=== PATIENT | male | born 1955 | race Caucasian/White ===

== ENCOUNTER 2021-10-24 06:29 | Inpatient (IN) | payer BC, SELFPAY ==
[2021-10-24] VITALS (38 sets, daily range): BP systolic 92–149; BP diastolic 75–126; PULSE 71–177; RESP 16–36; TEMP 36.5–37.2; O2SAT 94–100; BMI 22.1; BMI 23.1
--- NOTE | 2021-10-24 06:36 | EKG12_ITS ---
Test Reason : REPEAT Blood Pressure : / mmHG Vent. Rate : 127 BPM Atrial Rate : 127 BPM P-R Int : 100 ms QRS Dur : 144 ms QT Int : 370 ms P-R-T Axes : 062 086 -77 degrees QTc Int : 537 ms Sinus tachycardia with short NV Left bundle branch block Abnormal ECG Confirmed by KEYANNA HOGAN, JAM ([id number]), legal editor JACKIE HENRY ([id number]) on 10/27/2021 9:43:54 AM Referred By: KENTRELL Confirmed By:JAM BRICEÑO MD
--- NOTE | 2021-10-24 06:51 | EX.ED.DYSGE1 ---
HPI History of Present Illness Chief Complaint: Shortness of Breath Narrative Narrative: Patient is a 66-year-old male with past medical history of smoking and reported hiatal hernia. He states he went to bed normally last night and then awoke around 2 AM with sensation of palpitations/heart racing and shortness of breath. He states he has been told in the past that his shortness of breath is related to his smoking and hiatal hernia so he tried to sleep it off. Despite this he kept having palpitations and persistent symptoms so he presents for evaluation. Patient denies any past medical history of cardiac dysrhythmia and denies any excessive stimulant use or illicit drug use [facility] PFS Medical History no medical history Home Medications NK 10/24/21 [History Last Taken Unknown] Allergy/AdvReac Type Severity Reaction Status Date / Time No Known Allergies Allergy Verified 10/24/21 06:56 Social History Smoking Status: Current every day smoker tobacco type: cigarettes ROS ROS ED Constitutional Constitutional ED: Denies chills or fever(s) ENT ENT ED: Denies sore throat Cardiovascular Cardiovascular: Reports palpitations and racing heartbeat; Denies chest pain Respiratory/Chest Respiratory/Chest: Reports dyspnea; Denies cough Gastrointestinal Gastrointestinal: Reports nausea; Denies abdominal pain, diarrhea or vomiting Genitourinary Genitourinary ED: Denies dysuria Musculoskeletal Musculoskeletal: Denies myalgias Integumentary Denies rash Neurologic Neurologic: Denies headache(s) Hematologic/Lymphatic Hematologic/Lymphatic: Denies easy bleeding or easy bruising EXAM Physical Exam Const Vital Signs: 10/24/21 06:29 10/24/21 06:54 10/24/21 07:29 Temperature 97.7 F L Temperature Source Temporal Pulse Rate 177 H 156 H Pulse Rate [1 (Initial Baseline)] Pulse Rate [4] Pulse Rate [6] Pulse Rate [7] Respiratory Rate 24 H 29 H Respiratory Rate [1 (Initial Baseline)] Respiratory Rate [3] Respiratory Rate [4] Respiratory Rate [6] Respiratory Rate [7] Respiratory Effort Labored Accessory Muscle Use Respiratory Depth Deep Respiratory Pattern Tachypnea Blood Pressure 149/126 H 136/117 H Blood Pressure [4] Blood Pressure [7] Blood Pressure Mean 133 123 Pulse Ox 95 100 Oxygen Delivery Method Room Air Room Air Nasal Cannula Oxygen Delivery Method [1 (Initial Baseline)] Oxygen Delivery Method [2] Oxygen Delivery Method [3] Oxygen Delivery Method [4] Oxygen Delivery Method [5] Oxygen Delivery Method [6] Oxygen Delivery Method [7] Oxygen Flow Rate (L/min) 2 Oxygen Flow Rate (L/min) [1 (Initial Baseline)] Oxygen Flow Rate (L/min) [2] Oxygen Flow Rate (L/min) [3] Oxygen Flow Rate (L/min) [4] Oxygen Flow Rate (L/min) [5] Oxygen Flow Rate (L/min) [6] Oxygen Flow Rate (L/min) [7] 10/24/21 08:04 10/24/21 08:10 10/24/21 08:15 Temperature 98.1 F Temperature Source Pulse Rate 164 H Pulse Rate [1 (Initial Baseline)] Pulse Rate [4] Pulse Rate [6] Pulse Rate [7] Respiratory Rate 24 H Respiratory Rate [1 (Initial Baseline)] Respiratory Rate [3] Respiratory Rate [4] Respiratory Rate [6] Respiratory Rate [7] Respiratory Effort Respiratory Depth Respiratory Pattern Blood Pressure 141/114 H Blood Pressure [4] Blood Pressure [7] Blood Pressure Mean Pulse Ox 99 Oxygen Delivery Method Nasal Cannula Nasal Cannula Nasal Cannula Oxygen Delivery Method [1 (Initial Baseline)] Oxygen Delivery Method [2] Oxygen Delivery Method [3] Oxygen Delivery Method [4] Oxygen Delivery Method [5] Oxygen Delivery Method [6] Oxygen Delivery Method [7] Oxygen Flow Rate (L/min) 2 3 3 Oxygen Flow Rate (L/min) [1 (Initial Baseline)] Oxygen Flow Rate (L/min) [2] Oxygen Flow Rate (L/min) [3] Oxygen Flow Rate (L/min) [4] Oxygen Flow Rate (L/min) [5] Oxygen Flow Rate (L/min) [6] Oxygen Flow Rate (L/min) [7] 10/24/21 08:20 10/24/21 08:25 10/24/21 08:27 Temperature 98.9 F Temperature Source Pulse Rate 157 H Pulse Rate [1 (Initial Baseline)] Pulse Rate [4] Pulse Rate [6] 155 H Pulse Rate [7] 158 H Respiratory Rate 22 H Respiratory Rate [1 (Initial Baseline)] Respiratory Rate [3] Respiratory Rate [4] Respiratory Rate [6] 21 H Respiratory Rate [7] 36 H Respiratory Effort Respiratory Depth Respiratory Pattern Blood Pressure 122/96 H Blood Pressure [4] Blood Pressure [7] 113/100 H Blood Pressure Mean Pulse Ox 95 Oxygen Delivery Method Nasal Cannula Nasal Cannula Oxygen Delivery Method [1 (Initial Baseline)] Oxygen Delivery Method [2] Oxygen Delivery Method [3] Oxygen Delivery Method [4] Oxygen Delivery Method [5] Nasal Cannula Oxygen Delivery Method [6] Nasal Cannula Oxygen Delivery Method [7] Nasal Cannula Oxygen Flow Rate (L/min) 3 Oxygen Flow Rate (L/min) [1 (Initial Baseline)] Oxygen Flow Rate (L/min) [2] Oxygen Flow Rate (L/min) [3] Oxygen Flow Rate (L/min) [4] Oxygen Flow Rate (L/min) [5] 3 Oxygen Flow Rate (L/min) [6] 3 Oxygen Flow Rate (L/min) [7] 3 10/24/21 08:37 Temperature Temperature Source Pulse Rate Pulse Rate [1 (Initial Baseline)] 168 H Pulse Rate [4] 114 H Pulse Rate [6] Pulse Rate [7] Respiratory Rate Respiratory Rate [1 (Initial Baseline)] 30 H Respiratory Rate [3] 32 H Respiratory Rate [4] 30 H Respiratory Rate [6] Respiratory Rate [7] Respiratory Effort Respiratory Depth Respiratory Pattern Blood Pressure Blood Pressure [4] 121/103 H Blood Pressure [7] Blood Pressure Mean Pulse Ox 95 Oxygen Delivery Method Nasal Cannula Oxygen Delivery Method [1 (Initial Baseline)] Nasal Cannula Oxygen Delivery Method [2] Nasal Cannula Oxygen Delivery Method [3] Nasal Cannula Oxygen Delivery Method [4] Nasal Cannula Oxygen Delivery Method [5] Oxygen Delivery Method [6] Oxygen Delivery Method [7] Oxygen Flow Rate (L/min) 3 Oxygen Flow Rate (L/min) [1 (Initial Baseline)] 3 Oxygen Flow Rate (L/min) [2] 3 Oxygen Flow Rate (L/min) [3] 3 Oxygen Flow Rate (L/min) [4] 3 Oxygen Flow Rate (L/min) [5] Oxygen Flow Rate (L/min) [6] Oxygen Flow Rate (L/min) [7] Positive well nourished and well developed General Appearance ED: well developed HEENT Reports dry mucous membranes Mouth ED: Yes dry mucous membranes Mouth: dry mucous membranes Eyes PERRL and EOMs intact bilaterally Neck supple and no JVD Resp normal respiratory effort Resp Narrative: Breath sounds are diminished throughout with diffuse inspiratory wheezing consistent with history of COPD but no signs of respiratory distress Cardio Rate: other Other Details: Tachycardic rate with regular rhythm radial pulses are +2-4 bilaterally are equal and symmetric GI normal to inspection, nondistended, normoactive bowel sounds, non-tender, non-distended and no masses GI Narrative: No voluntary guarding or rigidity no pulsatile mass Auscultation: normoactive bowel sounds Palpation: soft Extremity normal to inspection Extremity Narrative: No asymmetric edema no pitting edema negative Homans' sign bilaterally Neuro oriented x3 and CN's II-XII intact bilaterally Sensorium / Orientation: alert Motor Exam: strength 5/5 throughout Psych mental status grossly normal Skin no rashes or lesions noted MDM MDM MDM Narrative Medical decision making narrative: Patient arrived to the ER hypertensive and in no acute respiratory distress but had a heart rate in the 160-180 range. Previous EKG shows normal sinus rhythm with left bundle branch block and patient denies any history of cardiac dysrhythmia. At this time because of the rate and the irregularity of the EKG I feel patient is in SVT with persistent left bundle and not a stable V. tach or other cardiac dysrhythmia. Patient was given 6 then 12 and 12 mg of adenosine without any improvement and therefore elected to perform a cardioversion. Patient underwent synchronized cardioversion and conscious sedation. He was given 2.5 mg of Versed and a total of 50 mg of propofol and then went under a synchronized cardioversion at 100 J. With this he did have resolution of his cardiac dysrhythmia and was now in sinus tachycardia at approximately 120 beats a minute. Patient then went into a coughing spell and returned back into his cardiac dysrhythmia. At that time he was given another 2.5 mg of Versed and 40 mg propofol. He underwent synchronized cardioversion at 150 200 and then 360 J. Despite this he had no resolution of his cardiac dysrhythmia. Therefore discussed the case with cardiology on-call and they recommend patient be started on Cardizem drip and admitted to the hospital for further evaluation. Please note total conscious sedation time of 15 to 20 minutes Lab Data Attestation: I reviewed the patient's lab results. Labs: Laboratory Results - last 24 hr 10/24/21 10/24/21 10/24/21 06:50 06:50 07:23 WBC Cancelled 6.8 Corrected WBC Cancelled RBC Cancelled 4.65 Hgb Cancelled 14.4 Hct Cancelled 43.4 MCV Cancelled 93.3 MCH Cancelled 31.0 MCHC Cancelled 33.2 RDW Std Deviation Cancelled 50.4 H RDW Coeff of El Cancelled 14.7 H Plt Count Cancelled 297 MPV Cancelled 10.1 Immature Gran % (Auto) Cancelled 0.300 Neut % (Auto) Cancelled 89.9 H Lymph % (Auto) Cancelled 7.4 L [place] % (Auto) Cancelled 2.1 Eos % (Auto) Cancelled 0.0 Baso % (Auto) Cancelled 0.3 Absolute Neuts (auto) Cancelled 6.1 Absolute Lymphs (auto) Cancelled 0.50 L Total Counted Cancelled Neutrophils % (Manual) Cancelled Band Neutrophils % Cancelled Lymphocytes % (Manual) Cancelled Monocytes % (Manual) Cancelled Eosinophils % (Manual) Cancelled Basophils % (Manual) Cancelled Metamyelocytes % Cancelled Myelocytes % Cancelled Promyelocytes % Cancelled Blast Cells % Cancelled Plasma Cell % (Manual) Cancelled Other Cells % Cancelled Nucleated RBC % Cancelled 0 Nucleated RBCs/100 WBC Cancelled Differential Comment Cancelled COMMENT Diff Path Review Cancelled Hypersegmented Neuts Cancelled Atypical Lymphocytes Cancelled Reactive Lymphocytes Cancelled Smudge Cells Cancelled Toxic Granulation Cancelled Toxic Vacuolation Cancelled Dohle Bodies Cancelled Harinder Rods Cancelled Platelet Estimate Cancelled Plt Morphology Comment Cancelled RBC Morphology Cancelled Polychromasia Cancelled Hypochromasia Cancelled Poikilocytosis Cancelled Basophilic Stippling Cancelled Anisocytosis Cancelled Microcytosis Cancelled Macrocytosis Cancelled Spherocytes Cancelled Sickle Cells Cancelled Target Cells Cancelled Tear Drop Cells Cancelled Ovalocytes Cancelled Stomatocytes Cancelled [place] Bodies Cancelled [place] Cells Cancelled Bite Cells Cancelled Crenated Cell Cancelled Acanthocytes (Spur) Cancelled Rouleaux Cancelled Schistocytes Cancelled Sodium 141 Potassium 4.5 Chloride 111 H Carbon Dioxide 24.0 Anion Gap 6 BUN 22 H Creatinine 1.02 Estim Creat Clear Calc 62.30 Est GFR (MDRD) Af Amer 95 Est GFR (MDRD) Non-Af 78 BUN/Creatinine Ratio 21.6 H Glucose 186 H Calcium 8.7 Magnesium 2.3 Troponin I High Sens 39 TSH 1.12 Critical Care Time Critical Care Time: Yes Critical care time (excluding procedures): - (Please note critical care time of 31 minutes) Discharge Plan Dx/Rx/DC Orders Clinical Impression: Sustained SVT Disposition Disposition: Acute Care Hospital [facility]
[2021-10-24] MEDS: Adenosine 6 MG/2 ML Syringe IV (06:58)
[2021-10-24] MEDS: 0.9% Normal Saline 1,000 ML 999 ML IV (06:58)
[2021-10-24] MEDS: Adenosine 6 MG/2 ML Syringe 12 MG IV ×2 (07:02→07:07)
--- NOTE | 2021-10-24 07:20 | NURSING ---
PER LAB, PURPLE NOT FULL ENOUGH
[2021-10-24 07:31] LABS: Absolute Neutrophil Count 6.1 X10^3/uL (2.0-7.7); Basophil# 0.02 X10^3/uL; Basophil% 0.3 % (0-1); Differential Indicated SCAN CRITERIA MET; Hematocrit 43.4 % (40-54); Hemoglobin 14.4 g/dL (13.0-16.5); Lymphocyte % 7.4 % (19-41); Mean Corp Hgb Conc 33.2 g/dL (32-36); Mean Corpuscular Volume 93.3 fL (80-94); Mean Platelet Vol. 10.1 fl (6.2-12.0); Monocyte# 0.14 X10^3/uL; Monocyte% 2.1 % (0-10); NRBC Flagged by Analyzer 0 % (0-5); Neutrophil # 6.08 X10^3/uL (2.7-7.7); Neutrophil % 89.9 % (47-70); POSITIVE DIFFERENTIAL YES; Platelet Count 297 K/mm3 (150-450); RBC Distribution Width CV 14.7 % (11.6-14.6); RBC Distribution Width SD 50.4 fl (35.1-43.9); Red Blood Count 4.65 M/mm3 (4.6-6.2); White Blood Count 6.8 K/mm3 (4.4-11.0)
[2021-10-24 07:42] LABS: Anion Gap 6 (5-15); BUN 22 mg/dL (7-18); BUN/Creat Ratio 21.6 RATIO (10-20); Calcium,Total 8.7 mg/dL (8.5-10.1); Chloride 111 mmol/L (98-107); Creatinine, Serum 1.02 mg/dL (0.70-1.30); EST Glomerular Filtration Rate 78 mL/min (>60); Est Glom Filt Rate - Afr Amer 95 mL/min (>60); Glucose 186 mg/dL (74-106); Magnesium 2.3 mg/dL (1.6-2.6); Potassium 4.5 mmol/L (3.5-5.1); Sodium Level 141 mmol/L (136-145); Thyroid Stim Hormone (TSH) 1.12 uIU/mL (0.358-3.74); Troponin-I HS 39 pg/mL (3.0-78.0)
--- NOTE | 2021-10-24 08:09 | EKG12_ITS ---
Test Reason : RHYTHM CHANGE Blood Pressure : / mmHG Vent. Rate : 093 BPM Atrial Rate : 093 BPM P-R Int : 140 ms QRS Dur : 150 ms QT Int : 420 ms P-R-T Axes : 058 087 -84 degrees QTc Int : 522 ms Normal sinus rhythm Left bundle branch block Abnormal ECG Confirmed by KEYANNA HOGAN, JAM ([id number]), sound editor JACKIE HENRY ([id number]) on 10/27/2021 9:44:10 AM Referred By: KENTRELL Confirmed By:JAM BRICEÑO MD
[2021-10-24] MEDS: Propofol 200 MG/20 ML Vial IV BOLUS (08:18)
[2021-10-24] MEDS: Midazolam 5 MG/ML Syringe IV (08:19)
--- NOTE | 2021-10-24 08:25 | ED.RN ---
PT BEGAN TO COUGH. RHYTHM WENT FROM SINUS TACH BACK IN SVT. DR PFEIFFER AT THE BEDSIDE
[2021-10-24] MEDS: Midazolam 5 MG/ML Syringe 2.5 MG IV (08:33)
[2021-10-24] MEDS: dilTIAZem 25 MG/5 ML Vial 20 MG IV BOLUS (08:53)
--- NOTE | 2021-10-24 09:09 | EKG12_ITS ---
Test Reason : Blood Pressure : / mmHG Vent. Rate : 175 BPM Atrial Rate : 175 BPM P-R Int : 000 ms QRS Dur : 126 ms QT Int : 290 ms P-R-T Axes : 000 088 270 degrees QTc Int : 494 ms Wide QRS tachycardia Abnormal ECG Confirmed by KEYANNA HOGAN, JAM ([id number]), editor at large JACKIE HENRY ([id number]) on 10/27/2021 10:10:26 AM Referred By: Confirmed By:JAM BRICEÑO MD
--- NOTE | 2021-10-24 09:10 | NURSING ---
PCU SHERRY SUSTAINED SVT
--- NOTE | 2021-10-24 09:20 | NURSING ---
NEEDS A BLUE TOP PER LAB
--- NOTE | 2021-10-24 09:29 | RAD_ITS ---
INDICATION: cough EXAMINATION/TECHNIQUE: X-RAY - XR Chest 1 View COMPARISON: Chest radiograph from 09/10/2012. Acute abdomen and chest radiograph from 05/09/2015 FINDINGS/ RAD/Chest 1 View (Portable) IMPRESSION: Support devices: None Patchy opacities in the right lung base. Trace right pleural effusion. Bilateral interstitial prominence which could relate to vascular congestion. No sizable pneumothorax. Cardiomediastinal silhouette is within normal limits. No acute findings in the bones or soft tissues. Electronically Signed: Eriberto Simpson, at 9:53 EDT ,
[2021-10-24 10:09] LABS: International Normalized Ratio 1.4; Prothrombin Time (Protime)PT. 16.5 SECONDS (11.7-14.9)
[2021-10-24 10:10] LABS: Partial Thromboplast Time 31.5 Seconds (24.1-36.2)
[2021-10-24] MEDS: MethylPREDNISolone 125 MG/2 ML Vial IV (10:15)
--- NOTE | 2021-10-24 11:14 | ECHOD_ITS ---
Reason For Study: ARRYTHMIA, SUSTAINED SVT Procedure This was a 2D Doppler, Color Flow transthoracic echocardiogram. Exam performed portable in patient room. Left Ventricle Mildly dilated left ventricle. The estimated ejection fraction is 25 %. Stage 2 diastolic dysfunction. There is severe global hypokinesis of the left ventricle. Right Ventricle Normal size and thickness. Mild to moderate global right ventricular systolic dysfunction. Atria Normal left atrium. Normal right atrium. Mitral Valve Normal mitral valve. Mild (1+) eccentric mitral valve insufficiency. Tricuspid Valve Normal tricuspid valve. Mild (1+) tricuspid valve insufficiency. Pulmonary artery systolic pressure is 38 mmHg. Aortic Valve Trisinus/trileaflet aortic valve. Pulmonic Valve Normal pulmonic valve. Great Vessels Normal aortic root. The pulmonary artery is normal size. The inferior vena cava is dilated. Pericardium/Pleural No pericardial effusion. MMode/2D Measurements & Calculations LVIDd: 5.9 cm IVSd: 0.91 cm Ao root diam: 3.2 cm RVDd: 3.9 cm LVPWd: 0.90 cm LAV(MOD-bp): 47.3 ml LVAd ap4: 35.0 cm2 LVAd ap2: 42.9 cm2 LAV(MOD-bp) Indexed: 27.9 ml/m2 LVLd ap4: 8.0 cm LVLd ap2: 8.8 cm LAV(MOD-sp2): 45.8 ml EDV(MOD-sp4): 129.4 ml EDV(MOD-sp2): 179.3 ml LAV(MOD-sp4): 44.9 ml EDV(sp4-el): 130.1 ml EDV(sp2-el): 178.4 ml LVAs ap4: 29.5 cm2 LVAs ap2: 37.6 cm2 LVLs ap4: 7.2 cm LVLs ap2: 8.5 cm ESV(MOD-sp4): 102.7 ml ESV(MOD-sp2): 139.3 ml ESV(sp4-el): 102.4 ml ESV(sp2-el): 140.5 ml EF(MOD-sp4): 20.6 % EF(MOD-sp2): 22.3 % EF(sp4-el): 21.3 % SV(MOD-sp4): 26.7 ml SV(MOD-sp2): 40.0 ml SV(sp4-el): 27.7 ml LA dimension(2D): 4.0 cm LA A4 area: 17.9 cm2 RA A4 area: 14.5 cm2 Time Measurements MV dec time: 0.11 sec Doppler Measurements & Calculations MV E max lan: 85.3 cm/sec Lat Peak E' Lan: 8.4 cm/sec Med Peak E' Lan: 7.2 cm/sec MV A max lan: 52.4 cm/sec E/E' lat: 10.1 E/E' med: 11.9 MV E/A: 1.6 Ao V2 max: 82.1 cm/sec LV V1 max: 64.2 cm/sec PA V2 max: 60.9 cm/sec Ao max P.7 mmHg LV V1 max P.7 mmHg TR max lan: 291.7 cm/sec TR max P.1 mmHg ECHO/Echo Complete Interpretation Summary Mildly dilated left ventricle. The estimated ejection fraction is 25 %. There is severe global hypokinesis of the left ventricle. Mild to moderate global right ventricular systolic dysfunction. Pulmonary artery systolic pressure is 38 mmHg. Stage 2 diastolic dysfunction. Mild (1+) tricuspid valve insufficiency. Ordering Physician: Glenn Renee Performed By: Eliane Funk RDCS
[2021-10-24] MEDS: 0.9% Normal Saline 1,000 ML 75 ML IV (11:23)
[2021-10-24] MEDS: Enoxaparin 40 MG/0.4 ML Syringe SC (13:01)
--- NOTE | 2021-10-24 13:16 | EKG12_ITS ---
Test Reason : AM EKG Blood Pressure : / mmHG Vent. Rate : 075 BPM Atrial Rate : 075 BPM P-R Int : 134 ms QRS Dur : 152 ms QT Int : 538 ms P-R-T Axes : 067 084 270 degrees QTc Int : 600 ms Normal sinus rhythm Left bundle branch block Abnormal ECG Confirmed by KEYANNA HOGAN, JAM ([id number]), senior editor JACKIE HENRY ([id number]) on 10/27/2021 10:11:11 AM Referred By: DR POWELL Confirmed By:JAM BRICEÑO MD
--- NOTE | 2021-10-24 13:37 | PCM.HP.STD ---
HPI - General General Date of Admission: 10/24/21 HPI Narrative ELISABET HAWTHORNE, is a 66 M who presents with shortness of breath and palpitations of started this morning. He states last night he went to bed he was feeling fine and then this morning he woke up short of breath and that his heart was racing. Is never has been like this before. He denies any recent illnesses, no fevers or chills, denies any sick contacts at home. He is a smoker but denies ever having been told that he has COPD. In the ER the ED physician felt he heard some wheezing so he was given a dose of steroids. When he came into the hospital it appeared to be in SVT versus V. tach therefore he was given a 6 mg and then a 12 mg dose of adenosine and then he was cardioverted twice as well however he sustained that rhythm. The ED physician discussed the case with cardiology who recommended admission and a Cardizem drip. He was given a 20 mg Cardizem bolus which brought his heart rate down from the 160s into the 90s and he was started on a Cardizem drip. He does feel better now but he still short of breath chest x-ray in the ER was significant for trace pleural effusion as well as hilar vascular congestion. He was not hypoxic in the ER, the oxygen appears to be for comfort. [facility] Medical History no medical history Home Medications NK 10/24/21 [History Last Taken Unknown] Allergy/AdvReac Type Severity Reaction Status Date / Time No Known Allergies Allergy Verified 10/24/21 06:56 Family History (Updated 10/24/21 @ 13:[address] Glenn Renee MD) Other Heart disease Surgical History (Updated 10/24/21 @ 13:[address] Glenn Renee MD) Status post bilateral inguinal hernia repair Status post umbilical hernia repair, follow-up exam Social History Smoking Status: Current every day smoker tobacco type: cigarettes ROS Constitutional Constitutional: Denies chills, fatigue, fever(s) or malaise Eyes Eyes: Denies blurry vision ENT HEENT: Denies headache(s) or nasal discharge Cardiovascular Cardiovascular: Reports palpitations; Denies chest pain, dyspnea on exertion or syncope Respiratory/Chest Respiratory/Chest: Reports shortness of breath at rest; Denies cough or shortness of breath with exertion Gastrointestinal Gastrointestinal: Denies constipation, diarrhea, nausea or vomiting Genitourinary Genitourinary: Denies dysuria Neurologic Neurologic: Denies focal weakness, numbness or tremor(s) Psychiatric Psychiatric: Denies anxiety or depression Vital Signs Vital Signs Vital Signs: 10/24/21 06:29 10/24/21 06:54 10/24/21 07:29 Temperature 97.7 F L Temperature Source Temporal Pulse Rate 177 H 156 H Pulse Rate [1 (Initial Baseline)] Pulse Rate [4] Pulse Rate [6] Pulse Rate [7] Respiratory Rate 24 H 29 H Respiratory Rate [1 (Initial Baseline)] Respiratory Rate [3] Respiratory Rate [4] Respiratory Rate [6] Respiratory Rate [7] Respiratory Effort Labored Accessory Muscle Use Respiratory Depth Deep Respiratory Pattern Tachypnea Blood Pressure 149/126 H 136/117 H Blood Pressure [4] Blood Pressure [7] Blood Pressure Mean 133 123 Blood Pressure Source Blood Pressure Position Blood Pressure Location Pulse Ox 95 100 Oxygen Delivery Method Room Air Room Air Nasal Cannula Oxygen Delivery Method [1 (Initial Baseline)] Oxygen Delivery Method [2] Oxygen Delivery Method [3] Oxygen Delivery Method [4] Oxygen Delivery Method [5] Oxygen Delivery Method [6] Oxygen Delivery Method [7] Oxygen Flow Rate (L/min) 2 Oxygen Flow Rate (L/min) [1 (Initial Baseline)] Oxygen Flow Rate (L/min) [2] Oxygen Flow Rate (L/min) [3] Oxygen Flow Rate (L/min) [4] Oxygen Flow Rate (L/min) [5] Oxygen Flow Rate (L/min) [6] Oxygen Flow Rate (L/min) [7] 10/24/21 08:04 10/24/21 08:10 10/24/21 08:15 Temperature 98.1 F Temperature Source Pulse Rate 164 H Pulse Rate [1 (Initial Baseline)] Pulse Rate [4] Pulse Rate [6] Pulse Rate [7] Respiratory Rate 24 H Respiratory Rate [1 (Initial Baseline)] Respiratory Rate [3] Respiratory Rate [4] Respiratory Rate [6] Respiratory Rate [7] Respiratory Effort Respiratory Depth Respiratory Pattern Blood Pressure 141/114 H Blood Pressure [4] Blood Pressure [7] Blood Pressure Mean Blood Pressure Source Blood Pressure Position Blood Pressure Location Pulse Ox 99 Oxygen Delivery Method Nasal Cannula Nasal Cannula Nasal Cannula Oxygen Delivery Method [1 (Initial Baseline)] Oxygen Delivery Method [2] Oxygen Delivery Method [3] Oxygen Delivery Method [4] Oxygen Delivery Method [5] Oxygen Delivery Method [6] Oxygen Delivery Method [7] Oxygen Flow Rate (L/min) 2 3 3 Oxygen Flow Rate (L/min) [1 (Initial Baseline)] Oxygen Flow Rate (L/min) [2] Oxygen Flow Rate (L/min) [3] Oxygen Flow Rate (L/min) [4] Oxygen Flow Rate (L/min) [5] Oxygen Flow Rate (L/min) [6] Oxygen Flow Rate (L/min) [7] 10/24/21 08:20 10/24/21 08:25 10/24/21 08:27 Temperature 98.9 F Temperature Source Pulse Rate 157 H Pulse Rate [1 (Initial Baseline)] Pulse Rate [4] Pulse Rate [6] 155 H Pulse Rate [7] 158 H Respiratory Rate 22 H Respiratory Rate [1 (Initial Baseline)] Respiratory Rate [3] Respiratory Rate [4] Respiratory Rate [6] 21 H Respiratory Rate [7] 36 H Respiratory Effort Respiratory Depth Respiratory Pattern Blood Pressure 122/96 H Blood Pressure [4] Blood Pressure [7] 113/100 H Blood Pressure Mean Blood Pressure Source Blood Pressure Position Blood Pressure Location Pulse Ox 95 Oxygen Delivery Method Nasal Cannula Nasal Cannula Oxygen Delivery Method [1 (Initial Baseline)] Oxygen Delivery Method [2] Oxygen Delivery Method [3] Oxygen Delivery Method [4] Oxygen Delivery Method [5] Nasal Cannula Oxygen Delivery Method [6] Nasal Cannula Oxygen Delivery Method [7] Nasal Cannula Oxygen Flow Rate (L/min) 3 Oxygen Flow Rate (L/min) [1 (Initial Baseline)] Oxygen Flow Rate (L/min) [2] Oxygen Flow Rate (L/min) [3] Oxygen Flow Rate (L/min) [4] Oxygen Flow Rate (L/min) [5] 3 Oxygen Flow Rate (L/min) [6] 3 Oxygen Flow Rate (L/min) [7] 3 10/24/21 08:35 10/24/21 08:37 10/24/21 08:40 Temperature Temperature Source Pulse Rate Pulse Rate [1 (Initial Baseline)] 168 H Pulse Rate [4] 114 H Pulse Rate [6] Pulse Rate [7] Respiratory Rate Respiratory Rate [1 (Initial Baseline)] 30 H Respiratory Rate [3] 32 H Respiratory Rate [4] 30 H Respiratory Rate [6] Respiratory Rate [7] Respiratory Effort Respiratory Depth Respiratory Pattern Blood Pressure Blood Pressure [4] 121/103 H Blood Pressure [7] Blood Pressure Mean Blood Pressure Source Blood Pressure Position Blood Pressure Location Pulse Ox 95 Oxygen Delivery Method Nasal Cannula Nasal Cannula Nasal Cannula Oxygen Delivery Method [1 (Initial Baseline)] Nasal Cannula Oxygen Delivery Method [2] Nasal Cannula Oxygen Delivery Method [3] Nasal Cannula Oxygen Delivery Method [4] Nasal Cannula Oxygen Delivery Method [5] Oxygen Delivery Method [6] Oxygen Delivery Method [7] Oxygen Flow Rate (L/min) 3 3 3 Oxygen Flow Rate (L/min) [1 (Initial Baseline)] 3 Oxygen Flow Rate (L/min) [2] 3 Oxygen Flow Rate (L/min) [3] 3 Oxygen Flow Rate (L/min) [4] 3 Oxygen Flow Rate (L/min) [5] Oxygen Flow Rate (L/min) [6] Oxygen Flow Rate (L/min) [7] 10/24/21 08:45 10/24/21 08:50 10/24/21 08:53 Temperature Temperature Source Pulse Rate Pulse Rate [1 (Initial Baseline)] Pulse Rate [4] Pulse Rate [6] Pulse Rate [7] Respiratory Rate Respiratory Rate [1 (Initial Baseline)] Respiratory Rate [3] Respiratory Rate [4] Respiratory Rate [6] Respiratory Rate [7] Respiratory Effort Respiratory Depth Respiratory Pattern Blood Pressure Blood Pressure [4] Blood Pressure [7] Blood Pressure Mean Blood Pressure Source Blood Pressure Position Blood Pressure Location Pulse Ox Oxygen Delivery Method Nasal Cannula Nasal Cannula Nasal Cannula Oxygen Delivery Method [1 (Initial Baseline)] Oxygen Delivery Method [2] Oxygen Delivery Method [3] Oxygen Delivery Method [4] Oxygen Delivery Method [5] Oxygen Delivery Method [6] Oxygen Delivery Method [7] Oxygen Flow Rate (L/min) 3 3 3 Oxygen Flow Rate (L/min) [1 (Initial Baseline)] Oxygen Flow Rate (L/min) [2] Oxygen Flow Rate (L/min) [3] Oxygen Flow Rate (L/min) [4] Oxygen Flow Rate (L/min) [5] Oxygen Flow Rate (L/min) [6] Oxygen Flow Rate (L/min) [7] 10/24/21 10:17 10/24/21 10:23 10/24/21 11:13 Temperature 98 F 98 F Temperature Source Temporal Temporal Pulse Rate 122 H 124 H 92 Pulse Rate [1 (Initial Baseline)] Pulse Rate [4] Pulse Rate [6] Pulse Rate [7] Respiratory Rate 16 18 Respiratory Rate [1 (Initial Baseline)] Respiratory Rate [3] Respiratory Rate [4] Respiratory Rate [6] Respiratory Rate [7] Respiratory Effort Respiratory Depth Respiratory Pattern Blood Pressure 127/103 H 127/103 H Blood Pressure [4] Blood Pressure [7] Blood Pressure Mean 111 111 Blood Pressure Source Blood Pressure Position Blood Pressure Location Pulse Ox 97 96 Oxygen Delivery Method Nasal Cannula Nasal Cannula Oxygen Delivery Method [1 (Initial Baseline)] Oxygen Delivery Method [2] Oxygen Delivery Method [3] Oxygen Delivery Method [4] Oxygen Delivery Method [5] Oxygen Delivery Method [6] Oxygen Delivery Method [7] Oxygen Flow Rate (L/min) Oxygen Flow Rate (L/min) [1 (Initial Baseline)] Oxygen Flow Rate (L/min) [2] Oxygen Flow Rate (L/min) [3] Oxygen Flow Rate (L/min) [4] Oxygen Flow Rate (L/min) [5] Oxygen Flow Rate (L/min) [6] Oxygen Flow Rate (L/min) [7] 10/24/21 11:15 10/24/21 11:30 10/24/21 13:00 Temperature 98.6 F Temperature Source Temporal Pulse Rate 93 Pulse Rate [1 (Initial Baseline)] Pulse Rate [4] Pulse Rate [6] Pulse Rate [7] Respiratory Rate 19 H 22 H Respiratory Rate [1 (Initial Baseline)] Respiratory Rate [3] Respiratory Rate [4] Respiratory Rate [6] Respiratory Rate [7] Respiratory Effort Normal Non-Labored Short of Breath Labored Respiratory Depth Normal Shallow Respiratory Pattern Normal Tachypnea Blood Pressure 126/100 H Blood Pressure [4] Blood Pressure [7] Blood Pressure Mean 108 Blood Pressure Source Monitor Blood Pressure Position Semi-Fowlers Blood Pressure Location Right Arm Pulse Ox 100 98 96 Oxygen Delivery Method Nasal Cannula Nasal Cannula Nasal Cannula Oxygen Delivery Method [1 (Initial Baseline)] Oxygen Delivery Method [2] Oxygen Delivery Method [3] Oxygen Delivery Method [4] Oxygen Delivery Method [5] Oxygen Delivery Method [6] Oxygen Delivery Method [7] Oxygen Flow Rate (L/min) 2 2 2 Oxygen Flow Rate (L/min) [1 (Initial Baseline)] Oxygen Flow Rate (L/min) [2] Oxygen Flow Rate (L/min) [3] Oxygen Flow Rate (L/min) [4] Oxygen Flow Rate (L/min) [5] Oxygen Flow Rate (L/min) [6] Oxygen Flow Rate (L/min) [7] Weight Weight: 139 lb 1.787 oz Body Mass Index (BMI) 23.1 Physical Exam Const alert, oriented x3 and no apparent distress General Appearance: cooperative HEENT normocephalic and moist oral mucous membranes Eyes PERRL, EOMs intact bilaterally and conjunctivae normal Neck supple and no JVD Resp normal respiratory effort, no retractions and no use of accessory muscles Auscultation: wheezes expiratory wheezes and right lower (Mild) and diminished lung sounds; Negative for crackles, rales or rhonchi Cardio regular rhythm, S1 normal heart sound, S2 normal heart sound and no murmurs Rate: tachycardic GI soft to palpation, non-tender and non-distended; Negative for hepatosplenomegaly Extremity no clubbing, cyanosis or edema Skin no rashes or lesions noted Neuro no focal motor deficits and no sensory deficits noted Psych affect normal Appearance: appropriate Results Lab / Micro Data Result Diagrams: 10/24/21 07:23 10/24/21 06:50 Labs: Laboratory Results - last 24 hr 10/24/21 06:50: WBC Cancelled, Corrected WBC Cancelled, RBC Cancelled, Hgb Cancelled, Hct Cancelled, MCV Cancelled, MCH Cancelled, MCHC Cancelled, RDW Std Deviation Cancelled, RDW Coeff of El Cancelled, Plt Count Cancelled, MPV Cancelled, Immature Gran % (Auto) Cancelled, Neut % (Auto) Cancelled, Lymph % (Auto) Cancelled, [place] % (Auto) Cancelled, Eos % (Auto) Cancelled, Baso % (Auto) Cancelled, Absolute Neuts (auto) Cancelled, Absolute Lymphs (auto) Cancelled, Total Counted Cancelled, Neutrophils % (Manual) Cancelled, Band Neutrophils % Cancelled, Lymphocytes % (Manual) Cancelled, Monocytes % (Manual) Cancelled, Eosinophils % (Manual) Cancelled, Basophils % (Manual) Cancelled, Metamyelocytes % Cancelled, Myelocytes % Cancelled, Promyelocytes % Cancelled, Blast Cells % Cancelled, Plasma Cell % (Manual) Cancelled, Other Cells % Cancelled, Nucleated RBC % Cancelled, Nucleated RBCs/100 WBC Cancelled, Differential Comment Cancelled, Diff Path Review Cancelled, Hypersegmented Neuts Cancelled, Atypical Lymphocytes Cancelled, Reactive Lymphocytes Cancelled, Smudge Cells Cancelled, Toxic Granulation Cancelled, Toxic Vacuolation Cancelled, Dohle Bodies Cancelled, Harinder Rods Cancelled, Platelet Estimate Cancelled, Plt Morphology Comment Cancelled, RBC Morphology Cancelled, Polychromasia Cancelled, Hypochromasia Cancelled, Poikilocytosis Cancelled, Basophilic Stippling Cancelled, Anisocytosis Cancelled, Microcytosis Cancelled, Macrocytosis Cancelled, Spherocytes Cancelled, Sickle Cells Cancelled, Target Cells Cancelled, Tear Drop Cells Cancelled, Ovalocytes Cancelled, Stomatocytes Cancelled, [place] Bodies Cancelled, Junito Cells Cancelled, Bite Cells Cancelled, Crenated Cell Cancelled, Acanthocytes (Spur) Cancelled, Rouleaux Cancelled, Schistocytes Cancelled 10/24/21 06:50: Sodium 141, Potassium 4.5, Chloride 111 H, Carbon Dioxide 24.0, Anion Gap 6, BUN 22 H, Creatinine 1.02, Estim Creat Clear Calc 62.30, Est GFR (MDRD) Af Amer 95, Est GFR (MDRD) Non-Af 78, BUN/Creatinine Ratio 21.6 H, Glucose 186 H, Calcium 8.7, Magnesium 2.3, Troponin I High Sens 39, TSH 1.12 10/24/21 07:23: WBC 6.8, RBC 4.65, Hgb 14.4, Hct 43.4, MCV 93.3, MCH 31.0, MCHC 33.2, RDW Std Deviation 50.4 H, RDW Coeff of El 14.7 H, Plt Count 297, MPV 10.1, Immature Gran % (Auto) 0.300, Neut % (Auto) 89.9 H, Lymph % (Auto) 7.4 L, [place] % (Auto) 2.1, Eos % (Auto) 0.0, Baso % (Auto) 0.3, Absolute Neuts (auto) 6.1, Absolute Lymphs (auto) 0.50 L, Nucleated RBC % 0, Differential Comment COMMENT 10/24/21 09:50: PT 16.5 H, INR 1.4, APTT 31.5 Radiology Impression Chest X-Ray 10/24/21 09:29 IMPRESSION: Support devices: None Patchy opacities in the right lung base. Trace right pleural effusion. Bilateral interstitial prominence which could relate to vascular congestion. No sizable pneumothorax. Cardiomediastinal silhouette is within normal limits. No acute findings in the bones or soft tissues. Electronically Signed: Eriberto Simpson, at 9:53 EDT , Assessment & Plan Assessment/Plan (1) Sustained SVT: PLAN: 1. Sustained SVT and shortness of breath/tobacco abuse ?Chest x-ray is unremarkable for any infectious etiology but it does show vascular congestion ?Obtain a BNP as well as an echo ?Continue with Cardizem drip as is controlling his heart rate, he was cardioverted twice in the ER as well as given 2 doses of adenosine without resolution ?EKG with a left bundle branch block which does appear to be chronic, on my review of the EKG it does look a little bit of a wide QRS versus a narrow complex tachycardia ?Consult cardiology ?He denies any history of COPD however he is a chronic smoker, discussed cessation. We will place him on oral steroids but will hold off on any breathing treatments at this time given his issues with tachyarrhythmia ?He was 95% on room air when he first presented to the hospital the oxygen is likely for comfort after his multiple cardioversions and adenosine, will try to wean as able DVT: Lovenox Charges/Coding Visit Charges Inpatient E&M: 53777 Init Hosp L2
[2021-10-24 14:18] LABS: BNP,B-Type NATRIURETIC PEPTIDE 3632.3 pg/mL (0-100)
[2021-10-24] MEDS: Furosemide 40 MG/4 ML Vial IV ×2 (15:33→20:26)
[2021-10-24] MEDS: 0.9% Saline Lock 10 ML Syringe IV ×2 (15:34→20:26)
--- NOTE | 2021-10-24 18:21 | CON.PCM.CA_ITS ---
Assessment & Plan Assessment/Plan (1) Sustained SVT: PLAN: He presented with a wide-complex tachycardia which appeared to be consistent with an atrial flutter with a 2-1 with a left bundle branch block aberrancy or possibly bundle branch tachycardia He currently is in sinus rhythm on the intravenous diltiazem which I would recommend we continue I would recommend weaning him off to a beta-jose rafael * I would send of the EKGs to fence supervisor for an opinion-he may benefit from an EP study and/or ablation (2) Cardiomyopathy: PLAN: He appears to have severe global cardiomyopathy with an estimated ejection fraction of 25% Would recommend starting guideline directed medical therapy. Ultimately if his ejection fraction does not improve would recommend an implantable defibrillator. Coronary artery disease will need to be excluded and I would recommend left heart catheterization. In view of his risk factors. (3) CHF (NYHA class III, ACC/AHA stage C): PLAN: He does have evidence of congestive heart failure with reduced ejec tion fraction. This is newly diagnosed. And appears to be acute * Would recommend starting carvedilol 6.25 mg and titrating upwards as appropriate * Would consider starting Entresto * Intravenous diuresis and then oral diuresis with Lasix * Would consider spironolactone * * Thank you for allowing me to participate in the care of your patient. Please don't hesitate to call if any issues arise. (4) HTN (hypertension), benign: PLAN: He does appear to have a history of hypertension. I would recommend treating the above aggressively with beta-jose rafael as well as with the neprilysin inhibitor Thank you for allowing me to participate in the care of your patient. Please don't hesitate to call if any issues arise. HPI Consult Data Date of Consult: 10/24/21 HPI Narrative HPI Narrative: ELISABET HAWTHORNE, is a 66 M who presents to the emergency room complaining of shortness of breath. He also states that he felt that his heart was racing much more than before. He presented to the emergency room and was noted to be in a tachycardia and was giving 6 mg of adenosine and 12 mg of adenosine. He then was cardioverted twice but he continued to sustain the rhythm. I was then called for consult and I recommended starting a diltiazem drip which then brought his heart rate down from the 160s to the 90s. It a ppeared that he was in a supraventricular tachyarrhythmia with aberrancy and his baseline EKG demonstrated normal sinus rhythm with a left bundle branch block. He is denied any chest pain or paroxysmal nocturnal dyspnea or pedal edema but he says that he has been short of breath which has been getting worse. His cardiac enzymes were noted to be normal. An echocardiogram performed today demonstrated an ejection fraction estimated to be 25% with globally reduced left ventricular systolic function. [facility] Medical History no medical history Home Medications NK 10/24/21 [History Last Taken Unknown] Allergy/AdvReac Type Severity Reaction Status Date / Time No Known Allergies Allergy Verified 10/24/21 06:56 Family History Other Heart disease Surgical History Status post bilateral inguinal hernia repair Status post umbilical hernia repair, follow-up exam Social History Smoking Status: Current every day smoker tobacco type: cigarettes ROS Constitutional Constitutional: Denies fever(s) or weight loss Eyes Eyes: Reports systems reviewed and no addt'l complaints, except as documented ENT HEENT: Reports systems reviewed and no addt'l complaints, except as documented Cardiovascular Cardiovascular: Denies chest pain at rest, chest pain with activity, dyspnea at rest, dyspnea on exertion, edema, palpitations or paroxysmal nocturnal dyspnea Respiratory/Chest Respiratory/Chest: Reports dyspnea on exertion, shortness of breath at rest and shortness of breath with exertion; Denies productive cough Gastrointestinal Gastrointestinal: Denies change in bowel habits, nausea, vomiting or weight changes Genitourinary Genitourinary: Denies difficulty urinating Musculoskeletal Musculoskeletal: Denies joint stiffness or muscle weakness Integumentary Integumentary: Denies lesions Neurologic Neurologic: Denies dizziness or syncope Psychiatric Psychiatric: Denies anxiety Endocrine Endocrinology: Denies excessive sweating or fatigue Hematologic/Lymphatic Hematologic/Lymphatic: Denies anemia Allergic/Immunologic Allergic/Immunologic: Denies seasonal rhinorrhea Physical Exam Const alert, oriented x3 and no apparent distress General Appearance: cooperative HEENT hearing grossly normal bilaterally Head and Scalp: atraumatic Eyes EOMs intact bilaterally Neck General: normal visual inspection Chest inspection of chest normal and palpation of chest normal Resp normal respiratory effort Auscultation: clear to auscultation bilaterally Cardio regular rate, regular rhythm, S1 normal heart sound and S2 normal heart sound Jugular Venous Distention: JVD GI normal to inspection, nondistended, normoactive bowel sounds Extremity normal capillary refill and no pedal edema Peripheral Pulses: Yes pulses 2+ throughout and femoral pulses present Skin no rashes or lesions noted Neuro oriented x3 and CN's II-XII intact bilaterally Psych Appearance: grossly normal and appropriate Risk Stratification Risk Stratification Applicable: No Objective Data Vital Signs: Vital Signs Temp Pulse Resp BP Pulse Ox 98.8 F 94 23 H 128/95 H 95 10/24/21 18:00 10/24/21 18:00 10/24/21 18:00 10/24/21 18:00 10/24/21 18:00 Oxygen Flow Rate (L/min) [7] 3 Oxygen Flow Rate (L/min) [6] 3 Oxygen Flow Rate (L/min) [5] 3 Oxygen Flow Rate (L/min) [4] 3 Oxygen Flow Rate (L/min) [3] 3 Oxygen Flow Rate (L/min) [2] 3 Oxygen Flow Rate (L/min) [1 ( 3 Initial Baseline)] Oxygen Flow Rate (L/min) 2 Oxygen Delivery Method [7] Nasal Cannula Oxygen Delivery Method [6] Nasal Cannula Oxygen Delivery Method [5] Nasal Cannula Oxygen Delivery Method [4] Nasal Cannula Oxygen Delivery Method [3] Nasal Cannula Oxygen Delivery Method [2] Nasal Cannula Oxygen Delivery Method [1 ( Nasal Cannula Initial Baseline)] Oxygen Delivery Method Nasal Cannula Weight: 139 lb 1.787 oz Body Mass Index (BMI) 23.1 Intake & Output: Intake and Output for Last 24 Hours 10/22/21 10/23/21 10/24/21 22:59 23:59 23:59 Intake Total 1418.40 / 1418.40 Output Total 200 / 200 Balance 1218.40 / 1218.40 Lab / Micro Data Result Diagrams: 10/24/21 07:23 10/24/21 06:50 Labs: Laboratory Results - last 24 hr 10/24/21 06:50: WBC Cancelled, Corrected WBC Cancelled, RBC Cancelled, Hgb Cancelled, Hct Cancelled, MCV Cancelled, MCH Cancelled, MCHC Cancelled, RDW Std Deviation Cancelled, RDW Coeff of El Cancelled, Plt Count Cancelled, MPV Cancelled, Immature Gran % (Auto) Cancelled, Neut % (Auto) Cancelled, Lymph % (Auto) Cancelled, [place] % (Auto) Cancelled, Eos % (Auto) Cancelled, Baso % (Auto) Cancelled, Absolute Neuts (auto) Cancelled, Absolute Lymphs (auto) Cancelled, Total Counted Cancelled, Neutrophils % (Manual) Cancelled, Band Neutrophils % Cancelled, Lymphocytes % (Manual) Cancelled, Monocytes % (Manual) Cancelled, Eosinophils % (Manual) Cancelled, Basophils % (Manual) Cancelled, Metamyelocytes % Cancelled, Myelocytes % Cancelled, Promyelocytes % Cancelled, Blast Cells % Cancelled, Plasma Cell % (Manual) Cancelled, Other Cells % Cancelled, Nucleated RBC % Cancelled, Nucleated RBCs/100 WBC Cancelled, Differential Comment Cancelled, Diff Path Review Cancelled, Hypersegmented Neuts Cancelled, Atypical Lymphocytes Cancelled, Reactive Lymphocytes Cancelled, Smudge Cells Cancelled, Toxic Granulation Cancelled, Toxic Vacuolation Cancelled, Dohle Bodies Cancelled, Harinder Rods Cancelled, Platelet Estimate Cancelled, Plt Morphology Comment Cancelled, RBC Morphology Cancelled, Polychromasia Cancelled, Hypoc hromasia Cancelled, Poikilocytosis Cancelled, Basophilic Stippling Cancelled, Anisocytosis Cancelled, Microcytosis Cancelled, Macrocytosis Cancelled, Spherocytes Cancelled, Sickle Cells Cancelled, Target Cells Cancelled, Tear Drop Cells Cancelled, Ovalocytes Cancelled, Stomatocytes Cancelled, Russell-Rollins Bodies Cancelled, Junito Cells Cancelled, Bite Cells Cancelled, Crenated Cell Cancelled, Acanthocytes (Spur) Cancelled, Rouleaux Cancelled, Schistocytes Cancelled 10/24/21 06:50: Sodium 141, Potassium 4.5, Chloride 111 H, Carbon Dioxide 24.0, Anion Gap 6, BUN 22 H, Creatinine 1.02, Estim Creat Clear Calc 62.30, Est GFR (MDRD) Af Amer 95, Est GFR (MDRD) Non-Af 78, BUN/Creatinine Ratio 21.6 H, Glucose 186 H, Calcium 8.7, Magnesium 2.3, Troponin I High Sens 39, TSH 1.12 10/24/21 07:23: WBC 6.8, RBC 4.65, Hgb 14.4, Hct 43.4, MCV 93.3, MCH 31.0, MCHC 33.2, RDW Std Deviation 50.4 H, RDW Coeff of El 14.7 H, Plt Count 297, MPV 10.1, Immature Gran % (Auto) 0.300, Neut % (Auto) 89.9 H, Lymph % (Auto) 7.4 L, [place] % (Auto) 2.1, Eos % (Auto) 0.0, Baso % (Auto) 0.3, Absolute Neuts (auto) 6.1, Absolute Lymphs (auto) 0.50 L, Nucleated RBC % 0, Differential Comment COMMENT 10/24/21 07:23: B-Natriuretic Peptide 3632.3 H 10/24/21 09:50: PT 16.5 H, INR 1.4, APTT 31.5 Cardiology Labs/Tests 10/24/21 06:50: WBC Cancelled, Corrected WBC Cancelled, RBC Cancelled, Hgb Cancelled, Hct Cancelled, MCV Cancelled, MCH Cancelled, MCHC Cancelled, Plt Count Cancelled, MPV Cancelled, Immature Gran % (Auto) Cancelled, Neut % (Auto) Cancelled, Lymph % (Auto) Cancelled, [place] % (Auto) Cancelled, Eos % (Auto) Cancelled, Baso % (Auto) Cancelled, Absolute Neuts (auto) Cancelled, Total Counted Cancelled, Neutrophils % (Manual) Cancelled, Band Neutrophils % Cancelled, Lymphocytes % (Manual) Cancelled, Monocytes % (Manual) Cancelled, Eosinophils % (Manual) Cancelled, Basophils % (Manual) Cancelled, Metamyelocytes % Cancelled, Myelocytes % Cancelled, Promyelocytes % Cancelled, Blast Cells % Cancelled, Plasma Cell % (Manual) Cancelled, Other Cells % Cancelled, Nucleated RBC % Cancelled 10/24/21 06:50: Sodium 141, Potassium 4.5, Chloride 111 H, Carbon Dioxide 24.0, Anion Gap 6, BUN 22 H, Creatinine 1.02, Est GFR (MDRD) Af Amer 95, Est GFR (MDRD) Non-Af 78, BUN/Creatinine Ratio 21.6 H, Glucose 186 H, Calcium 8.7, Magnesium 2.3 10/24/21 07:23: WBC 6.8, RBC 4.65, Hgb 14.4, Hct 43.4, MCV 93.3, MCH 31.0, MCHC 33.2, Plt Count 297, MPV 10.1, Immature Gran % (Auto) 0.300, Neut % (Auto) 89.9 H, Lymph % (Auto) 7.4 L, [place] % (Auto) 2.1, Eos % (Auto) 0.0, Baso % (Auto) 0.3, Absolute Neuts (auto) 6.1, Nucleated RBC % 0 10/24/21 07:23: B-Natriuretic Peptide 3632.3 H 10/24/21 09:50: PT 16.5 H, INR 1.4, APTT 31.5 Rhythm: EKG: ECHO: Stress Test: Cardiac Cath: PCI: CT Surgery: Holter monitor: EPS: PPM: CXR: Chest CT Scan: Radiography Diagnostic Testing: Radiology Impression Chest X-Ray 10/24/21 09:29 IMPRESSION: Support devices: None Patchy opacities in the right lung base. Trace right pleural effusion. Bilateral interstitial prominence which could relate to vascular congestion. No sizable pneumothorax. Cardiomediastinal silhouette is within normal limits. No acute findings in the bones or soft tissues. Electronically Signed: Eriberto Simpson, at 9:53 EDT , Echocardiogram 10/24/21 11:14 Interpretation Summary Mildly dilated left ventricle. The estimated ejection fraction is 25 %. There is severe global hypokinesis of the left ventricle. Mild to moderate global right ventricular systolic dysfunction. Pulmonary artery systolic pressure is 38 mmHg. Stage 2 diastolic dysfunction. Mild (1+) tricuspid valve insufficiency. Ordering Physician: Glenn Renee Performed By: Eliane Funk RDCS
[2021-10-24] MEDS: Acetaminophen 325 MG Tablet 650 MG PO (19:29)
[2021-10-24] MEDS: Carvedilol 6.25 MG Tablet PO (20:34)
[2021-10-24] MEDS: SACUBITRIL/VALSARTAN 24/26 MG TABLET 1 EACH PO (20:34)
[2021-10-25] VITALS (33 sets, daily range): BP systolic 89–116; BP diastolic 66–89; PULSE 58–84; RESP 10–22; TEMP 36.4–37.1; O2SAT 87–99
--- NOTE | 2021-10-25 05:55 | EKG12_ITS ---
Test Reason : Blood Pressure : / mmHG Vent. Rate : 088 BPM Atrial Rate : 088 BPM P-R Int : 132 ms QRS Dur : 146 ms QT Int : 422 ms P-R-T Axes : 052 071 260 degrees QTc Int : 510 ms Normal sinus rhythm Left bundle branch block Abnormal ECG Confirmed by KEYANNA HOGAN, JAM ([id number]), video editor JACKIE HENRY ([id number]) on 10/27/2021 10:14:20 AM Referred By: SHERRY Confirmed By:JAM BRICEÑO MD
[2021-10-25 06:25] LABS: Absolute Lymphocyte Count 0.92 X10^3/uL (0.83-4.51); Absolute Neutrophil Count 6.7 X10^3/uL (2.0-7.7); Basophil# 0.01 X10^3/uL; Basophil% 0.1 % (0-1); Hematocrit 41.1 % (40-54); Hemoglobin 13.9 g/dL (13.0-16.5); Lymphocyte # 0.92 X10^3/ul (0.83-4.51); Lymphocyte % 11.5 % (19-41); Mean Corp Hgb Conc 33.8 g/dL (32-36); Mean Corpuscular Hgb 30.4 pg (27.0-32.0); Mean Corpuscular Volume 89.9 fL (80-94); Mean Platelet Vol. 10.6 fl (6.2-12.0); Monocyte# 0.32 X10^3/uL; NRBC Flagged by Analyzer 0 % (0-5); Neutrophil % 83.9 % (47-70); Platelet Count 280 K/mm3 (150-450); RBC Distribution Width SD 48.9 fl (35.1-43.9); Red Blood Count 4.57 M/mm3 (4.6-6.2)
[2021-10-25] MEDS: 0.9% Normal Saline 1,000 ML 10 ML IV (06:51)
[2021-10-25 06:52] LABS: Anion Gap 7 (5-15); BUN 17 mg/dL (7-18); BUN/Creat Ratio 17.7 RATIO (10-20); Calcium,Total 8.5 mg/dL (8.5-10.1); Chloride 107 mmol/L (98-107); Creatinine, Serum 0.96 mg/dL (0.70-1.30); EST Glomerular Filtration Rate 84 mL/min (>60); Est Glom Filt Rate - Afr Amer 102 mL/min (>60); Estimated Creatinine Clearance 67.62 ml/min; Glucose 152 mg/dL (74-106); Sodium Level 138 mmol/L (136-145)
[2021-10-25] MEDS: SACUBITRIL/VALSARTAN 24/26 MG TABLET 1 EACH PO ×2 (07:57→21:55)
[2021-10-25] MEDS: Carvedilol 6.25 MG Tablet PO ×2 (07:57→21:55)
[2021-10-25] MEDS: Aspirin 325 MG Tablet PO (08:33)
--- NOTE | 2021-10-25 09:03 | PCM.PN.HOSP ---
Subjective Subjective Feel much better today, off of oxygen. Echo yesterday demonstrated systolic and diastolic heart failure Objective Data Objective Data Vital Signs: Vital Signs Temp Pulse Resp BP Pulse Ox 98.8 F 73 16 111/83 H 93 10/25/21 06:00 10/25/21 06:00 10/25/21 06:00 10/25/21 06:00 10/25/21 06:00 Oxygen Flow Rate (L/min) [7] 3 Oxygen Flow Rate (L/min) [6] 3 Oxygen Flow Rate (L/min) [5] 3 Oxygen Flow Rate (L/min) [4] 3 Oxygen Flow Rate (L/min) [3] 3 Oxygen Flow Rate (L/min) [2] 3 Oxygen Flow Rate (L/min) [1 ( 3 Initial Baseline)] Oxygen Flow Rate (L/min) 1 Oxygen Delivery Method [7] Nasal Cannula Oxygen Delivery Method [6] Nasal Cannula Oxygen Delivery Method [5] Nasal Cannula Oxygen Delivery Method [4] Nasal Cannula Oxygen Delivery Method [3] Nasal Cannula Oxygen Delivery Method [2] Nasal Cannula Oxygen Delivery Method [1 ( Nasal Cannula Initial Baseline)] Oxygen Delivery Method Nasal Cannula Weight: 139 lb 1.787 oz Body Mass Index (BMI) 23.1 Intake & Output: Intake and Output for Last 24 Hours 10/24/21 10/25/21 10/26/21 03:59 03:59 03:59 Intake Total 1748.40 / 1758.40 30 / 30 Output Total 1425 / 1425 450 / 450 Balance 323.40 / 333.40 -420 / -420 Lab / Micro Data Result Diagrams: 10/25/21 05:37 10/25/21 05:37 Labs: Laboratory Results - last 24 hr 10/24/21 07:23: B-Natriuretic Peptide 3632.3 H 10/24/21 09:50: PT 16.5 H, INR 1.4, APTT 31.5 10/25/21 05:37: WBC 8.0, RBC 4.57 L, Hgb 13.9, Hct 41.1, MCV 89.9, MCH 30.4, MCHC 33.8, RDW Std Deviation 48.9 H, RDW Coeff of El 15.0 H, Plt Count 280, MPV 10.6, Immature Gran % (Auto) 0.500, Neut % (Auto) 83.9 H, Lymph % (Auto) 11.5 L, [place] % (Auto) 4.0, Eos % (Auto) 0.0, Baso % (Auto) 0.1, Absolute Neuts (auto) 6.7, Absolute Lymphs (auto) 0.92, Nucleated RBC % 0 10/25/21 05:37: Sodium 138, Potassium 4.0, Chloride 107, Carbon Dioxide 24.0, Anion Gap 7, BUN 17, Creatinine 0.96, Estim Creat Clear Calc 67.62, Est GFR (MDRD) Af Amer 102, Est GFR (MDRD) Non-Af 84, BUN/Creatinine Ratio 17.7, Glucose 152 H, Calcium 8.5 Micro: Microbiology 10/24/21 Unknown Nasal Secretion SARS-CoV-2 Antigen (Rapid) - Final Radiography Diagnostic Testing: Radiology Impression Chest X-Ray 10/24/21 09:29 IMPRESSION: Support devices: None Patchy opacities in the right lung base. Trace right pleural effusion. Bilateral interstitial prominence which could relate to vascular congestion. No sizable pneumothorax. Cardiomediastinal silhouette is within normal limits. No acute findings in the bones or soft tissues. Electronically Signed: Eriberto Simpson, at 9:53 EDT , Echocardiogram 10/24/21 11:14 Interpretation Summary Mildly dilated left ventricle. The estimated ejection fraction is 25 %. There is severe global hypokinesis of the left ventricle. Mild to moderate global right ventricular systolic dysfunction. Pulmonary artery systolic pressure is 38 mmHg. Stage 2 diastolic dysfunction. Mild (1+) tricuspid valve insufficiency. Ordering Physician: Glenn Renee Performed By: Eliane Funk RDCS Physical Exam Const alert, oriented x3 and no apparent distress General Appearance: cooperative HEENT normocephalic and moist oral mucous membranes Eyes PERRL, EOMs intact bilaterally and conjunctivae normal Neck supple and no JVD Resp normal respiratory effort, no retractions and no use of accessory muscles Auscultation: diminished lung sounds; Negative for crackles, rales, rhonchi or wheezes Cardio regular rhythm, S1 normal heart sound, S2 normal heart sound and no murmurs Rate: tachycardic GI soft to palpation, non-tender and non-distended; Negative for hepatosplenomegaly Extremity no clubbing, cyanosis or edema Skin no rashes or lesions noted Neuro no focal motor deficits and no sensory deficits noted Psych affect normal Appearance: appropriate Assessment & Plan Assessment/Plan (1) Sustained SVT: PLAN: 1. Sustained SVT with acute systolic and diastolic heart failure/tobacco abuse ?Chest x-ray is unremarkable for any infectious etiology but it does show vascular congestion ?Obtain a BNP as well as an echo ?he was cardioverted twice in the ER as well as given 2 doses of adenosine without resolution ?EKG with a left bundle branch block which does appear to be chronic, on my review of the EKG it does look a little bit of a wide QRS versus a narrow complex tachycardia ?Consult cardiology ?Echo with an EF of 25% and stage II diastolic dysfunction with pulmonary artery pressures of 38 mmHg, continue with Lasix twice daily cardiology started him on Entresto, Coreg ?We will plan for a heart cath in the morning for further evaluation of his new onset heart failure ?We will discontinue any steroids given his echo results ?He was 95% on room air when he first presented to the hospital the oxygen is likely for comfort after his multiple cardioversions and adenosine, will try to wean as able ?Discussed cessation of his tobacco use DVT: Lovenox Charges/Coding Visit Charges Inpatient E&M: 63790 Subs Hosp L2
--- NOTE | 2021-10-25 09:09 | CASEMGMT ---
According to the [employer] website, the following are in-network tertiary facilities: [facility], [place], [facility], [facility], [facility], [facility], [facility], and . Wade SCHMID CM
--- NOTE | 2021-10-25 10:31 | CASEMGMT ---
BINU RAM assessment: Face to Face with patient for initial transition planning/care coordination assessment. BINU RAM introduced self and role at [facility], pt voices understanding and consents to assessment. Pt is sitting up in bed in no distress on 2L. Pt is A/Ox4 and answers all questions appropriately. Care providers, pharmacy, and demographics verified. Presentation: Pt c/o SOB since thurs-feels like heart beating fast Admitting dx: Sustained SVT PCP: No PCP, pt provided list of in-network providers Specialists: None [facility] Insurance: [employer] Prescription Benefit: [employer] Living Will/HPOA: Pt does not have LW/HPOA and declines AD info. LNOK: Manolo Gray, friend Living Arrangements: Pt lives with 2 friends in 1 story apt and states no concerns at home. Pt is independent with ADL's. Transportation: Pt states friends drive and states no transportation concerns. DME/HHC: Pt states no current DME or need for any further DME. Pt states no hx of HHC or SNF. Pt states no concerns with going home at time of discharge. Pt works specimen processor. Pt states smoke about 1/2 pack cigarettes daily and drinks about 2.5 liquor drinks daily. Pt states no further concerns/needs. CM to follow for any further discharge planning/needs. Advised pt to ask for CM if any further questions/concerns/needs arise, voices understanding. Pt Goal: Home [place] BINU [place]
--- NOTE | 2021-10-25 13:05 | PN.CARD_ITS ---
Subjective Subjective The patient seen and evaluated. Underwent cardiac catheterization today. Objective Data Vital Signs: Vital Signs Temp Pulse Resp BP Pulse Ox 98.6 F 67 16 105/77 95 10/25/21 10:00 10/25/21 11:08 10/25/21 11:08 10/25/21 11:08 10/25/21 11:08 Oxygen Flow Rate (L/min) [7] 3 Oxygen Flow Rate (L/min) [6] 3 Oxygen Flow Rate (L/min) [5] 3 Oxygen Flow Rate (L/min) [4] 3 Oxygen Flow Rate (L/min) [3] 3 Oxygen Flow Rate (L/min) [2] 3 Oxygen Flow Rate (L/min) [1 ( 3 Initial Baseline)] Oxygen Flow Rate (L/min) 2 Oxygen Delivery Method [7] Nasal Cannula Oxygen Delivery Method [6] Nasal Cannula Oxygen Delivery Method [5] Nasal Cannula Oxygen Delivery Method [4] Nasal Cannula Oxygen Delivery Method [3] Nasal Cannula Oxygen Delivery Method [2] Nasal Cannula Oxygen Delivery Method [1 ( Nasal Cannula Initial Baseline)] Oxygen Delivery Method Nasal Cannula Weight: 139 lb 1.787 oz Body Mass Index (BMI) 23.1 Intake & Output: Intake and Output for Last 24 Hours 10/23/21 10/24/21 10/25/21 23:59 23:59 23:59 Intake Total 1708.40 / 1718.40 167.67 / 167.67 Output Total 1425 / 1425 450 / 450 Balance 283.40 / 293.40 -282.33 / -282.33 Lab / Micro Data Result Diagrams: 10/25/21 05:37 10/25/21 05:37 Labs: Laboratory Results - last 24 hr 10/24/21 07:23: B-Natriuretic Peptide 3632.3 H 10/25/21 05:37: WBC 8.0, RBC 4.57 L, Hgb 13.9, Hct 41.1, MCV 89.9, MCH 30.4, MCHC 33.8, RDW Std Deviation 48.9 H, RDW Coeff of El 15.0 H, Plt Count 280, MPV 10.6, Immature Gran % (Auto) 0.500, Neut % (Auto) 83.9 H, Lymph % (Auto) 11.5 L, [place] % (Auto) 4.0, Eos % (Auto) 0.0, Baso % (Auto) 0.1, Absolute Neuts (auto) 6.7, Absolute Lymphs (auto) 0.92, Nucleated RBC % 0 10/25/21 05:37: Sodium 138, Potassium 4.0, Chloride 107, Carbon Dioxide 24.0, Anion Gap 7, BUN 17, Creatinine 0.96, Estim Creat Clear Calc 67.62, Est GFR (MDRD) Af Amer 102, Est GFR (MDRD) Non-Af 84, BUN/Creatinine Ratio 17.7, Glucose 152 H, Calcium 8.5 Micro: Microbiology 10/24/21 Unknown Nasal Secretion SARS-CoV-2 Antigen (Rapid) - Final Cardiology Labs/Tests 10/24/21 07:23: B-Natriuretic Peptide 3632.3 H 10/25/21 05:37: WBC 8.0, RBC 4.57 L, Hgb 13.9, Hct 41.1, MCV 89.9, MCH 30.4, MCHC 33.8, Plt Count 280, MPV 10.6, Immature Gran % (Auto) 0.500, Neut % (Auto) 83.9 H, Lymph % (Auto) 11.5 L, [place] % (Auto) 4.0, Eos % (Auto) 0.0, Baso % (Auto) 0.1, Absolute Neuts (auto) 6.7, Nucleated RBC % 0 10/25/21 05:37: Sodium 138, Potassium 4.0, Chloride 107, Carbon Dioxide 24.0, Anion Gap 7, BUN 17, Creatinine 0.96, Est GFR (MDRD) Af Amer 102, Est GFR (MDRD) Non-Af 84, BUN/Creatinine Ratio 17.7, Glucose 152 H, Calcium 8.5 Rhythm: EKG: ECHO: Stress Test: Cardiac Cath: PCI: CT Surgery: Holter monitor: EPS: PPM: CXR: Chest CT Scan: Radiography Diagnostic Testing: Radiology Impression Echocardiogram 10/24/21 11:14 Interpretation Summary Mildly dilated left ventricle. The estimated ejection fraction is 25 %. There is severe global hypokinesis of the left ventricle. Mild to moderate global right ventricular systolic dysfunction. Pulmonary artery systolic pressure is 38 mmHg. Stage 2 diastolic dysfunction. Mild (1+) tricuspid valve insufficiency. Ordering Physician: Glenn Renee Performed By: Eliane Funk RDCS Physical Exam Const alert, oriented x3 and no apparent distress General Appearance: cooperative HEENT hearing grossly normal bilaterally Head and Scalp: atraumatic Eyes EOMs intact bilaterally Neck General: normal visual inspection Chest inspection of chest normal and palpation of chest normal Resp normal respiratory effort Auscultation: clear to auscultation bilaterally Cardio regular rate, regular rhythm, S1 normal heart sound and S2 normal heart sound Jugular Venous Distention: JVD GI normal to inspection, nondistended, normoactive bowel sounds Extremity normal capillary refill and no pedal edema Peripheral Pulses: Yes pulses 2+ throughout and femoral pulses present Skin no rashes or lesions noted Neuro oriented x3 and CN's II-XII intact bilaterally Psych Appearance: grossly normal and appropriate Assessment & Plan Assessment/Plan (1) Sustained SVT: PLAN: He presented with a wide-complex tachycardia which appeared to be consistent with an atrial flutter with a 2-1 with a left bundle branch block aberrancy or possibly bundle branch tachycardia He currently is in sinus rhythm on the intravenous diltiazem which I would recommend we continue I would recommend weaning him off to a beta-jose rafael * I would send of the EKGs to [facility] for an opinion-he may benefit from an EP study and/or ablation--which I did and he agrees. Arrangements were made to transfer the patient to a tertiary care facility [facility]. (2) Cardiomyopathy: PLAN: He appears to have severe global cardiomyopathy with an estimated ejection fraction of 25% Would recommend starting guideline directed medical therapy. Ultimately if his ejection fraction does not improve would recommend an implantable defibrillator. Coronary artery disease will need to be excluded from the cardiac catheterization today which demonstrated no evidence of obstructive coronary disease. Ejection fraction was confirmed at 15%. (3) CHF (NYHA class III, ACC/AHA stage C): PLAN: He does have evidence of congestive heart failure with reduced ejection fraction. This is newly diagnosed. And appears to be acute * Would recommend starting carvedilol 6.25 mg and titrating upwards as appropriate * Would consider starting Entresto * Intravenous diuresis and then oral diuresis with Lasix * Would consider spironolactone * * Thank you for allowing me to participate in the care of your patient. Please don't hesitate to call if any issues arise. (4) HTN (hypertension), benign: PLAN: He does appear to have a history of hypertension. I would recommend treating the above aggressively with beta-jose rafael as well as with the neprilysin inhibitor Thank you for allowing me to participate in the care of your patient. Please don't hesitate to call if any issues arise.
--- NOTE | 2021-10-25 13:54 | DS.PCM_ITS ---
Providers Date of Admission: 10/24/21 Primary Care Physician: No Primary Care Phys Consultations 10/24/21 11:14 Consult: Cardiology Routine Consulting Provider: Alexys Stewart Reason for Consult: Sustained SVT EMERGENT Consult: No MD Notified: Yes Date Notified: 10/24/21 Time Notified: 09:06 Method of Notification: Verbal Reason For Visit: SUSTAINED SVT Diagnosis Discharge Diagnosis (1) Sustained SVT: Status: Acute Code(s): I47.1 - Supraventricular tachycardia (2) Cardiomyopathy: Status: Acute Code(s): I42.9 - Cardiomyopathy, unspecified (3) CHF (NYHA class III, ACC/AHA stage C): Status: Acute Code(s): I50.9 - Heart failure, unspecified (4) HTN (hypertension), benign: Status: Acute Code(s): I10 - Essential (primary) hypertension Medications at Discharge Home Medications NK 10/24/21 Hospital Course Operations None Procedures 2-D Echocardiogram and Cardiac catheterization Summary of Care Provided Minutes Spent on Discharge: 42 Hospital Course: Per HPI: ELISABET HAWTHORNE, is a 66 M who presents with shortness of breath and palpitations of started this morning. He states last night he went to bed he was feeling fine and then this morning he woke up short of breath and that his heart was racing. Is never has been like this before. He denies any recent illnesses, no fevers or chills, denies any sick contacts at home. He is a smoker but denies ever having been told that he has COPD. In the ER the ED physician felt he heard some wheezing so he was given a dose of steroids. When he came into the hospital it appeared to be in SVT versus V. tach therefore he was given a 6 mg and then a 12 mg dose of adenosine and then he was cardioverted twice as well however he sustained that rhythm. The ED physician discussed the case with cardiology who recommended admission and a Cardizem drip. He was given a 20 mg Cardizem bolus which brought his heart rate down from the 160s into the 90s and he was started on a Cardizem drip. He does feel better now but he still short of breath chest x-ray in the ER was significant for trace pleural effusion as well as hilar vascular congestion. He was not hypoxic in the ER, the oxygen appears to be for comfort. Hospital Course: 1. Sustained SVT with acute systolic and diastolic heart failure/tobacco abuse ?Chest x-ray is unremarkable for any infectious etiology but it does show vascular congestion ?BNP was over 3000 ?he was cardioverted twice in the ER as well as given 2 doses of adenosine without resolution ?EKG with a left bundle branch block which does appear to be chronic, on my review of the EKG it does look a little bit of a wide QRS versus a narrow complex tachycardia ?Consult cardiology ?Echo with an EF of 25% and stage II diastolic dysfunction with pulmonary artery pressures of 38 mmHg, continue with Lasix twice daily cardiology started him on Entresto, Coreg ?Heart cath this morning demonstrated clean coronary arteries, but demonstrated an EF at 15%, given the fact that this is likely secondary to tachycardia dilma suni cardiomyopathy, was discussed with him about following up with [facility] for electrophysiology which he agrees with. Transfer is currently in progress. ?He was 95% on room air when he first presented to the hospital the oxygen is likely for comfort after his multiple cardioversions and adenosine, will try to wean as able ?Discussed cessation of his tobacco use Weight / BMI Weight Weight: 139 lb 1.787 oz Body Mass Index (BMI) 23.1 ABG / Lab / Microbiology Data Result Diagrams: 10/25/21 05:37 10/25/21 05:37 Laboratory: Laboratory Results - last 24 hr 10/24/21 07:23: B-Natriuretic Peptide 3632.3 H 10/25/21 05:37: WBC 8.0, RBC 4.57 L, Hgb 13.9, Hct 41.1, MCV 89.9, MCH 30.4, MCHC 33.8, RDW Std Deviation 48.9 H, RDW Coeff of El 15.0 H, Plt Count 280, MPV 10.6, Immature Gran % (Auto) 0.500, Neut % (Auto) 83.9 H, Lymph % (Auto) 11.5 L, [place] % (Auto) 4.0, Eos % (Auto) 0.0, Baso % (Auto) 0.1, Absolute Neuts (auto) 6.7, Absolute Lymphs (auto) 0.92, Nucleated RBC % 0 10/25/21 05:37: Sodium 138, Potassium 4.0, Chloride 107, Carbon Dioxide 24.0, Anion Gap 7, BUN 17, Creatinine 0.96, Estim Creat Clear Calc 67.62, Est GFR (MDRD) Af Amer 102, Est GFR (MDRD) Non-Af 84, BUN/Creatinine Ratio 17.7, Glucose 152 H, Calcium 8.5 Microbiology: Microbiology 10/24/21 Unknown Nasal Secretion SARS-CoV-2 Antigen (Rapid) - Final Radiography Diagnostic Testing: Radiology Impression Echocardiogram 10/24/21 11:14 Interpretation Summary Mildly dilated left ventricle. The estimated ejection fraction is 25 %. There is severe global hypokinesis of the left ventricle. Mild to moderate global right ventricular systolic dysfunction. Pulmonary artery systolic pressure is 38 mmHg. Stage 2 diastolic dysfunction. Mild (1+) tricuspid valve insufficiency. Ordering Physician: Glenn Renee Performed By: Eliane Funk RDCS Meaningful Use Info Meaningful Use Diagnoses (Choose all that apply): None applicable Discharge Plan Admission Admit Date/Time: 10/24/21 09:03 Attending Provider: Glenn Renee Primary Care Provider: Care Physician,No Primary Consulting Providers: Alexys Stewart Discharge Orders/Prescriptions Prescriptions: No Action NK RF: 0 Referrals / Follow Up: Care Physician,No Primary [Primary Care Provider] - Disposition Discharge Orders: Discharge Patient (Routine); Ordered 10/25/21 Ordered By: Dr. Glenn Renee Charges/Coding Visit Charges Inpatient E&M: [id number] Disch Hosp
[2021-10-25] MEDS: 0.9% Normal Saline 1,000 ML 30 ML IV (14:08)
[2021-10-25] MEDS: Enoxaparin 40 MG/0.4 ML Syringe SC (14:09)
--- NOTE | 2021-10-25 17:09 | CL.D_ITS ---
Patient Name: ELISABET HAWTHORNE Study Date: 10/25/2021 Performing: lAexys Stewart MD Ht: 65 inches 165 cm : 1955 Wt: 139.1 lbs 63 kg Age: 66 Gender: male BSA: 1.69 PROCEDURE(S) PERFORMED [id number])LHC/COR/LV CLINICAL PROFILE AND INDICATIONS Indications: Cardiomyopathy Heart Failure: NYHA Class: 3, Newly Diagnosed: Yes, Heart Failure Type: Systolic Stress/Imaging Stress/Image Study Performed: No CAD Presentations: Other: SOB CONCLUSIONS Normal coronary arteries Cardiomyopathy: Dilated RECOMMENDATIONS GDMT and EP eval for EPS and possible VT ablation DESCRIPTION OF PROCEDURE The patient arrived to the procedure lab. The risks and benefits of the procedure as well as a full d escription of our services here and current unavailability of surgical backup were fully explained to the patient and/or their significant other prior to the catheterization. The Timeout was completed, verifying the correct patient and procedure. The patient's procedural site was prepped and draped in the usual fashion. Local anesthetic was given subcutaneously to right radial region with Lidocaine 2% . Using a modified Seldinger technique, arterial access was obtained via the right radial artery, a 6 Fr sheath was inserted. Right Coronary Artery selective angiography was then performed in multiple v iews using a 5 Fr. 4.0 Independence catheter. Left Coronary Artery selective angiography was performed in mu ltiple views using a 5 Fr. 4.0 Independence catheter. Left Ventriculography was performed in GRUBER projection using a 5 Fr. Pigtail catheter. LV to AO pullback pressures were then recorded.The arterial sheath was pulled and a TR Band was applied for hemostasis CORONARY ANGIOGRAPHY DOMINANCE: Right Dominant LEFT HEART ASSESSMENT Left Ventricular Ejection Fraction: by LV Gram 15 % Global Hypokinesis - Severe Depressed Left Ventricular systolic function LEFT MAIN: Angiographically normal LEFT ANTERIOR DESCENDING ARTERY: Mild calcification, No significant disease noted CIRCUMFLEX ARTERY: No significant disease noted COMPLICATIONS No Complications PROCEDURE MEDICATIONS Versed 1 mg IV Fentanyl 50 mcg IV Oxygen: 2 L/min via nasal cannula SUMMARY OF HEMODYNAMIC DATA Time AIR REST ECG 12:33:21 AO 96/65 (79) SA 12:49:02 LV 90/8, 19 12:54:48 LV 92/10, 23 12:54:55 LV 91/14, 25 12:55:41 LV 85/12, 22 12:55:47 LVp 86/12, 24 12:55:58 AOp 93/59 (73) 12:56:03 Signed By Alexys Stewart MD On 10/25/2021 17:08:06 Alexys Stewart MD
[2021-10-25] MEDS: 0.9% Saline Lock 10 ML Syringe IV ×2 (17:12→21:54)
[2021-10-25] MEDS: Furosemide 40 MG/4 ML Vial IV (17:12)
== END 2021-10-25 22:45 | disposition short-term general hospital (02) | DRG 286 ==
LOC: ED 08:56 → PCU 09:24
PROVIDERS: Internal Medicine Cardiovascular Disease; Admitting Provider Family Medicine; Emergency Provider Emergency Medicine; Visit Provider Family Medicine
DX: I47.1 Supraventricular tachycardia (principal); I50.41 Acute combined systolic (congestive) and diastolic (congestive) heart failure; I42.9 Cardiomyopathy, unspecified; I48.92 Unspecified atrial flutter; I11.0 Hypertensive heart disease with heart failure; F17.210 Nicotine dependence, cigarettes, uncomplicated; Z23 Encounter for immunization; Z20.822 Contact with and (suspected) exposure to COVID-19
CPT/HCPCS: 36415; 71045; 80048; 83735; 83880; 84443; 84484; 85025; 85610; 85730; 87426; 92960; 93005; 93306; 93458; 94762; 99152; 99153; 99285; 99406; J7030; J7040; 90686; A4216; C1769; C1894; J0153; J1940; Q9967